=== PATIENT | male | born 1995 | race Caucasian/White ===

== ENCOUNTER 2021-07-15 15:23 | Emergency (ER) | payer OTHER ==
[2021-07-15 15:52] VITALS: BP 126/77; PULSE 74; TEMP 98.4; BMI 33.0
== END 2021-07-15 16:15 | disposition home or self-care (01) ==
LOC: FER 15:23
DX: S60.912A Unspecified superficial injury of left wrist, initial encounter (principal); Y35.891A Legal intervention involving other specified means, law enforcement official injured, initial encounter
CPT/HCPCS: 73110-TC-LT-FY; 99283-25

== ENCOUNTER 2023-02-21 00:42 | Emergency (ER) | payer OTHER ==
[2023-02-21 00:50] VITALS: BP 141/76; PULSE 94; RESP 16; TEMP 98.1; BMI 34.4
== END 2023-02-21 02:27 | disposition home or self-care (01) ==
LOC: FER 00:42
DX: S80.12XA Contusion of left lower leg, initial encounter (principal); M79.662 Pain in left lower leg; W50.1XXA Accidental kick by another person, initial encounter; W19.XXXA Unspecified fall, initial encounter
CPT/HCPCS: 73590-TC-LT-FY; 99283-25

== ENCOUNTER 2023-10-14 21:34 | Emergency (ER) | payer OTHER ==
[2023-10-14 21:58] VITALS: BP 120/65; PULSE 88; RESP 15; TEMP 99; BMI 35.2
[2023-10-14] MEDS ORDERED: DIPHTH,PERTUSS(ACELL),TET 0.5 ML DISP.SYRIN IM ONE (22:11)
[2023-10-14] MEDS: DIPHTH,PERTUSS(ACELL),TET 0.5 ML DISP.SYRIN IM ONE (22:19)
== END 2023-10-14 23:25 | disposition home or self-care (01) ==
LOC: FER 21:34
PROC: 3E0234Z Introduction of Serum, Toxoid and Vaccine into Muscle, Percutaneous Approach (ICD-10-PCS; principal; 2023-10-14)
DX: S81.811A Laceration without foreign body, right lower leg, initial encounter (principal); S40.811A Abrasion of right upper arm, initial encounter; W17.1XXA Fall into storm drain or manhole, initial encounter; Y99.0 Civilian activity done for income or pay; Z23 Encounter for immunization
CPT/HCPCS: 90715; 99283-25

== ENCOUNTER 2023-11-08 21:47 | Emergency (ER) | payer OTHER ==
[2023-11-08 22:01] VITALS: BP 143/89; PULSE 85; RESP 165; TEMP 98.6; BMI 34.4
[2023-11-08] MEDS ORDERED: IBUPROFEN 600 MG TABLET (FP) PO ONE (22:52)
[2023-11-08] MEDS: IBUPROFEN 600 MG TABLET (FP) PO ONE (22:56)
== END 2023-11-08 23:35 | disposition home or self-care (01) ==
LOC: FER 21:47
DX: S63.642A Sprain of metacarpophalangeal joint of left thumb, initial encounter (principal); Y35.811A Legal intervention involving manhandling, law enforcement official injured, initial encounter
CPT/HCPCS: 73130-TC-LT-FY; 99283-25